=== PATIENT | male | born 1955 | race Caucasian/White ===

== ENCOUNTER → 2017-05-25 | Outpatient (CLI) | payer MEDICARE, MEDICAID ==
[~2017-05-25] MED LIST: ALLOPURINOL100 M1; ALLOPURINOL100 MG; AMLODIPINE BES10 MG PO; ATENOLOL50 M1; AZITHROMYCIN250 MG PO; CELEXA20 MG; DOXYCYCLINE100 M1; FENOFIBRATE MI134 MG PO; FUROSEMIDE 40MG40 MG; GABAPENTIN300 MG; HYDROCODONE BIT; MELOXICAM7.5 MG PO; METOCLOPRAMIDE10 M2; OMEPRAZOLE40 MG PO; RESTORIL 30MG C30 MG; SULFAMETH/TRIME1 TAB; TRESIBA FL200 UNIT/1; VALSARTAN320 MG PO; VITAMIN D50000 UNIT
--- NOTE | 2017-05-25 20:34 | RADIOLOGY REPORT PS360 ---
CHEST(2 VIEWS-NOT PORTABLE) Ordering physician: HONORIO MENENDEZ Age: 62 years Male INDICATION: chest symptomsCHEST PAIN,CAD,HHD,FATIGUE PROCEDURE: CHEST(2 VIEWS-NOT PORTABLE) FINDINGS: Prior chest film 05/22/2016 used as comparison Lungs hyperexpanded and clear with no focal pneumonia. With nothing definitely acute. Slight coarsening markings toward lung bases and mild chronic changes No pneumothorax. No pleural effusion. Heart upper normal size. , Cardiac silhouette Not as pronounced as 2016 exam . Normal pulmonary vascularity. Hilar and mediastinal structures appear satisfactory. Chest wall unremarkable. T-spine intact. IMPRESSION ----- Nothing definitely acute Hyperexpansion COPD. Heart upper normal in size.
[2017-05-25 20:56] LABS: BUN 21 mg/dL (7-18)
[2017-05-25 21:08] LABS: GFR (ESTIMATED) 56 ML/MIN (>60)
== END ==
LOC: LAB 16:09
PROVIDERS: Internal Medicine Nephrology
DX: N25.0 Renal osteodystrophy (principal); I44.0 Atrioventricular block, first degree; R07.9 Chest pain, unspecified; R06.00 Dyspnea, unspecified; I25.10 Atherosclerotic heart disease of native coronary artery without angina pectoris; I11.9 Hypertensive heart disease without heart failure; R53.83 Other fatigue; G47.33 Obstructive sleep apnea (adult) (pediatric); E55.9 Vitamin D deficiency, unspecified

== ENCOUNTER → 2017-05-27 | Outpatient (CLI) | payer MEDICARE, MEDICAID ==
--- NOTE | 2017-05-28 16:02 | RADIOLOGY REPORT PS360 ---
PROCEDURE: 2-D M-mode and color Doppler study INDICATIONS FOR THE TEST: Chest pain + COPD Heart Murmur+ Tobacco Smoking Palpitations+ Fatigue+ Syncope Edema+ Hypertension+Diabetes Mellitus+ Rheumatic Fever SOB+LIND Obesity+Hyperlipidemia+ Family History HD Additional History 1ST DEGREE AV BLOCK, CAD, DELISA PATIENT INFORMATION HEIGHT:68 WEIGHT:302 GENDER: Male B/P:139/81 2-D/M-MODE INTERPRETATION: 2-D MEASUREMENTS OBSERVED VALUES IN CMS Right Ventricular Dimension (RVDd) 2.0 Interventricular Septum (Thickness)(IVsd) 1.1 Left Ventricular Internal Dimensions(LVIDd) 5.2 Left Ventricular Posterior Wall (Thickness)(LVPWd) 1.1 Aortic Root 2.8 Aortic Cusp Separation 2.0 Left Atrial Dimensions (LAD) 4.3 2D 1. Left atrium is mildly enlarged, left ventricle is normal size, there is mild qualitative concentric left ventricular hypertrophy present, visually estimated ejection fraction 55% with no obvious regional wall motion abnormality. 2. The right atrium and right ventricle are mildly enlarged with normal contractility. 3. The aortic valve is minimally thickened and fibrosed. 4. The mitral and tricuspid valve leaflets are minimally thickened. 5. The pulmonic valve is poorly visualized. 6. No significant pericardial effusion noted. DOPPLER INTERROGATION: Doppler interrogation of the aortic, mitral and tricuspid valvular presence of mild mitral and tricuspid regurgitation, tricuspid regurgitant jet velocity is insufficient for calculation of the right ventricular systolic pressure, grade 1 diastolic dysfunction seen without tissue Doppler evidence of raised left atrial pressure. CONCLUSION: 1. Mild biatrial enlargement, normal left ventricular size, mild concentric left ventricular hypertrophy, visually estimated ejection fraction 55% with no obvious regional wall motion abnormality, grade 1 diastolic dysfunction seen without tissue Doppler evidence of raised left atrial pressure. 2. Mildly enlarged right ventricle with normal contractility. 3. Mild mitral and tricuspid regurgitation. 4. No significant pericardial effusion noted.
== END ==
LOC: RT 10:45
DX: I20.8 Other forms of angina pectoris (principal); I44.0 Atrioventricular block, first degree; R07.9 Chest pain, unspecified; R06.00 Dyspnea, unspecified; I25.10 Atherosclerotic heart disease of native coronary artery without angina pectoris; I11.9 Hypertensive heart disease without heart failure; R53.83 Other fatigue; G47.33 Obstructive sleep apnea (adult) (pediatric)